=== PATIENT | female | born 1975 | race Caucasian/White ===

== ENCOUNTER 2021-04-09 12:56 | Outpatient (CLI) | payer BC, SELFPAY ==
--- NOTE | ~2021-04-09 | XR_ITS ---
EXAMINATION: XR chest 2V 04/09/2021 13:38 INDICATION: Nicotine dependence PROCEDURE: 2 view chest COMPARISON: 08/28/2018 FINDINGS: The lungs are clear. The cardiomediastinal silhouette is within normal limits. There are no pleural effusions. There is no pneumothorax suspected. There is scoliosis. IMPRESSION: 1: NO ACUTE CARDIOPULMONARY DISEASE. Reviewed, dictated and finalized at location A.
--- NOTE | ~2021-04-09 | MM_ITS ---
EXAMINATION: MM scrn thao implant BI w honorio HISTORY: Screening mammogram TECHNIQUE: Craniocaudal and mediolateral oblique 3-D tomosynthesis images with implant displacement a nd synthetic 2-D images were generated. Craniocaudal and mediolateral oblique views of the breasts wi thout implant displacement were obtained using full field digital mammography. CAD analysis was submi tted and interpreted. COMPARISON: 08/28/2018 bilateral implant digital screening mammogram BREAST PARENCHYMAL COMPOSITION: There are scattered areas of fibroglandular density. FINDINGS: Status post bilateral augmentation mammoplasty There is no evidence of suspicious mass, charlene cification, or architectural distortion to suggest malignancy in either breast. There has been no ada picious interval change. IMPRESSION: 1. No mammographic evidence of malignancy. 2. Recommend routine screening mammography in one year. BI-RADS Category 1: Negative Reviewed, dictated and finalized at location A.
== END 2021-04-09 12:57 ==
PROVIDERS: Visit Provider Family Medicine
DX: Z12.31 Encounter for screening mammogram for malignant neoplasm of breast (principal); F17.200 Nicotine dependence, unspecified, uncomplicated
CPT/HCPCS: 71046; 77063; 77067

== ENCOUNTER 2021-10-30 09:31 | Emergency (ER) | payer BC, SELFPAY ==
[2021-10-30] VITALS (23 sets, daily range): BP systolic 86–124; BP diastolic 66–88; PULSE 70–100; RESP 12–22; TEMP 35.6–36.6; O2SAT 97–100
--- NOTE | ~2021-10-30 | XR_ITS ---
EXAMINATION: XR chest 1V portable DATE: 10/30/2021 10:25 INDICATION: Unresponsive. Overdose. TECHNIQUE: A single frontal view of the chest was obtained. COMPARISON: Chest 2 views 04/09/2021 FINDINGS: There is mild atelectasis in the lower lung zones. No pleural effusion or pneumothorax. The heart size is normal. Breast implants are noted. IMPRESSION: 1. Mild atelectasis in the lower lung zones. Reviewed, dictated and finalized at location A. TUBE ASSEMBLER MACHINE
--- NOTE | ~2021-10-30 | XR_ITS ---
EXAMINATION: XR chest 1V portable DATE: 10/30/2021 11:28 INDICATION: Intubation. TECHNIQUE: A single frontal view of the chest was obtained. COMPARISON: Chest single view at 10:15 AM FINDINGS: There is mild atelectasis in the lower lung zones. No pleural effusion or pneumothorax. The heart size is normal. The endotracheal tube tip is 3 mm above the natacha. IMPRESSION: 1. Endotracheal tube tip 3 mm above the natacha. Retraction 2 cm is recommended. 2. Mild atelectasis in the lower lung zones. Reviewed, dictated and finalized at location A. INTERMEDIATE
--- NOTE | ~2021-10-30 | CT_ITS ---
EXAMINATION: CT brain wo con EXAM DATE: 10/30/2021 10:24 INDICATION: Unresponsive, temporary change in awareness. TECHNIQUE: Spiral CT of the head was performed without contrast. Axial, coronal and sagittal images were reviewed. The dose-length product (DLP) for this examination was 605.33 mGy-cm. The exposure w as tailored according to patient size, and iterative reconstruction (ASIR) was used as additional dos e reduction technique. There is no prior study for comparison. FINDINGS: There is no acute intraparenchymal hemorrhage. No evidence of intraparenchymal brain mass lesion. No evidence of acute infarction. There is no mass effect or midline shift. The ventricles are normal in size. There are no extra-axial collections. There are no acute calvarial fractures. T he orbits are unremarkable. Soft tissue is unremarkable. The visualized sinuses and mastoid air cj ls are well aerated. IMPRESSION: 1. No acute intracranial findings. Reviewed, dictated and finalized at location B. N OUT DRILLER
--- NOTE | ~2021-10-30 | XR_ITS ---
EXAMINATION: XR chest 1V portable DATE: 10/30/2021 12:08 INDICATION: Intubation. TECHNIQUE: A single frontal view of the chest was obtained. COMPARISON: Chest single view at 11:27 AM FINDINGS: There are mild airspace opacities in left lower lung zone. No pleural effusion or pneumotho rax. The heart size is normal. The endotracheal tube tip is 13 mm above the natacha. IMPRESSION: 1. Unchanged mild airspace opacities in left lower lung zone, likely atelectasis. Pneumonia is less l ikely. Reviewed, dictated and finalized at location A. E GENERAL DUTY IMPRESSION: 1. Unchanged mild airspace opacities in left lower lung zone, likely atelectasi s. Pneumonia is less likely.
--- NOTE | 2021-10-30 09:32 | ECG_ITS ---
Measurements Intervals [place] Rate: 103 P: 68 NH: 163 QRS: 90 QRSD: 97 T: 55 QT: 364 QTc: 477 Interpretive Statements SINUS TACHYCARDIA MINIMAL Q WAVES- INFERIOR LEADS BORDERLINE ECG Electronically Signed On 10-30-2021 10:03:00 NEUROPHYSIOLOGICAL TECHNICIAN by Bj Bragg D.O.
[2021-10-30 09:48] LABS: Add Urine Microscopic? NO; Appearance Urine Clear (Clear); Bilirubin Urine Negative (Negative); Blood Urine Negative (Negative); Color Urine Light Yellow (Yellow); Glucose Urine UA Negative (Negative); Ketones Urine Negative (Negative); Leukocyte Esterase Ur Negative LEU/UL (Negative); Nitrate Urine Negative (Negative); Protein Urine Negative (Negative); Specific Grav Ur 1.015 (1.010-1.020); Urobilinogen Urine 0.2 mg/dL (0.2-1.0); pH Urine 5.5 (5.0-8.0)
[2021-10-30 09:49] LABS: Basophils Absolute Auto 0.03 K/mm3 (0.00-0.10); Basophils Percent Auto 0.3 % (0.0-1.0); Eosinophils Absolute Auto 0.09 K/mm3 (0.02-0.50); Eosinophils Percent Auto 0.9 % (1.0-6.0); Hematocrit 38.5 % (35.0-49.0); Hemoglobin 13.4 g/dL (12.0-15.0); Immature Granulocyte Absolute 0.05 K/mm3 (0.00-0.00); Immature Granulocyte Percent A 0.5 % (0.0-0.0); Lymphocytes Absolute Auto 3.26 K/mm3 (1.10-4.50); Lymphocytes Percent Auto 34.1 % (18.0-42.0); Mean Corpuscular HGB Conc 34.8 g/dL (32.0-36.0); Mean Corpuscular Hemoglobin 34.4 pg (27.0-31.0); Mean Corpuscular Volume 98.7 fL (78.0-102.0); Mean Platelet Volume 10.4 fl (9.2-11.8); Monocytes Absolute Auto 0.46 K/mm3 (0.10-0.90); Monocytes Percent Auto 4.8 % (2.0-11.0); Neutrophils Absolute Auto 5.7 K/mm3 (1.7-7.2); Neutrophils Percent Auto 59.4 % (50.0-70.0); Platelet Count Result 311 K/mm3 (150-420); Red Cell Distribution Width 13.2 % (11.6-14.4); White Blood Count 9.6 K/mm3 (4.8-10.8)
[2021-10-30 09:58] LABS: Amphetamine Screen Urine Negative (Negative); Barbiturate Screen Urine Negative (Negative); Benzodiazepines Screen Urine Negative (Negative); Cannabinoid Screen Urine Negative (Negative); Cocaine Screen Urine Negative (Negative); Methadone Screen Urine Negative (Negative); Opiate Screen Urine Negative (Negative); Phencyclidine Screen Urine Negative (Negative)
[2021-10-30 10:17] LABS: Acetaminophen < 2 ug/mL (10-30); Alanine Aminotransferase 20 U/L (14-59); Albumin Level 3.5 g/dL (3.4-5.0); Alkaline Phosphatase 111 U/L (46-116); Anion Gap 13 mmol/L (8-16); Aspartate Amino Transferase 14 U/L (15-37); Bilirubin,Total 0.2 mg/dL (0.00-1.00); Blood Urea Nitrogen 12 mg/dL (7-18); Calcium 8.6 mg/dL (8.5-10.1); Carbon Dioxide 24 mmol/L (21-32); Chloride 105 mmol/L (98-108); Creatine Kinase 60 U/L (26-192); Estimated CRCL calculation 95 ml/min; Estimated Glomerular Filt Rate > 60; Ethanol 58 mg/dL (0-6); Glucose 86 mg/dL (70-99); Osmolality Calculated 292 mOsm/kg (285-295); Potassium 3.6 mmol/L (3.5-5.1); Salicylate 6.6 mg/dL (2.8-20.0); Sodium 142 mmol/L (136-145); Thyroid Stimulating Hormone 1.71 uIU/mL (0.36-3.74); Total Protein 7.3 g/dL (6.4-8.2); Troponin I 4.9 ng/L (0.00-60.4)
[2021-10-30 10:28] LABS: Lactic Acid Reflex 1.6 mmol/L (0.4-2.0)
[2021-10-30] MEDS: SODIUM CHLORIDE 0.9% IV 1,000 ML 999 ML IV CONT (10:30)
[2021-10-30 10:31] LABS: Base Excess ABG -5.8 mmol/L (0-2); HCO3 ABG 19.6 mmol/L (23-29); Oxygen Content ABG 14.8 %vol (16.0-22.0); Oxygen Saturation ABG 82.4 % (95-97); Oxyhemoglobin 79.9 % (94-100); PCO2 ABG 38.3 mmHg (35-45); PO2 ABG 50.2 mmHg (80-90); Total Hemoglobin 13.2 g/dL (12.0-18.0); pH ABG 7.33 (7.35-7.45)
[2021-10-30 10:34] LABS: Device ROOM AIR; Modified Allen's Test Pass; Site Drawn LEFT RADIAL
[2021-10-30] MEDS: NALOXONE HCL INJ 2 MG/2 ML AMP 1 MG IV PUSH ×2 (10:55→11:04)
--- NOTE | 2021-10-30 11:00 | PC.NURSE ---
Pt still only responding to painful stimuli. Pt having moments of moving feet or hands for a few seconds. Respiratory bagging pt and ERP assessing pt.
[2021-10-30] MEDS: SODIUM CHLORIDE 0.9% IV 1,000 ML 200 ML IV CONT (11:15)
--- NOTE | 2021-10-30 11:16 | PC.NURSE ---
ERP, Respiratory, Tech, and Pharmacist, and RN at bedside to intubate pt.[id number] 1117 24mg etomidate being prepped by pharmacist 1118 100mg Kemal 1120 Medications admi 1121 ERP intubating. 1122ERP listening for breath sounds. Respiratory bagging through tube placement. 1122 X ray called for placement
[2021-10-30] MEDS: ETOMIDATE 20 MG/10 ML AMPUL 40 MG (11:18)
[2021-10-30 11:28] LABS: SARS-CoV-2 Ag Negative (Negative)
--- NOTE | 2021-10-30 11:29 | PC.NURSE ---
Per ERP verbal order to RN and pharmacist. Pt to be started on 10mcg/kg/min. Propofol started at 1130
[2021-10-30] MEDS: PROPOFOL IV EMULSION 100 ML 5.1 MG (11:30)
[2021-10-30] MEDS: THIAMINE HCL 200 MG/2 ML VIAL 100 MG IV PUSH (11:32)
[2021-10-30 11:55] LABS: Glucose Point of Care 43 mg/dl (65-105)
[2021-10-30 11:55] LABS: Glucose Point of Care 62 mg/dl (65-105)
[2021-10-30] MEDS: DEXTROSE 5%/0.9% SOD CHL 1,000 ML 200 ML IV CONT ×2 (12:13→16:56)
--- NOTE | 2021-10-30 12:35 | PC.NURSE ---
1210 NS infusion stopped. per ERP switch to NS with 5% dextrose
[2021-10-30 13:16] LABS: Glucose Point of Care 105 mg/dl (65-105)
--- NOTE | 2021-10-30 13:34 | PC.NURSE ---
Hilary GAO called multiple facilities for a bed around 1130 [place], [place], [facility], [place], [place], [facility], [facility], [facility], [facility], [facility], [facility], [facility], [facility], [facility], [facility], [facility], [facility], [facility] and [facility]. All beds were full in the ICU with multiple places boarding ER patients.
[2021-10-30 13:39] LABS: Device VENTILATOR; Fractional Inspired Oxygen 100 %; HCO3 ABG 20.8 mmol/L (23-29); Modified Allen's Test Pass; Oxygen Content ABG 17.7 %vol (16.0-22.0); Oxygen Saturation ABG 99.1 % (95-97); Oxyhemoglobin 97.9 % (94-100); PCO2 ABG 51.5 mmHg (35-45); Site Drawn LEFT RADIAL; Total Hemoglobin 12.2 g/dL (12.0-18.0); pH ABG 7.22 (7.35-7.45)
[2021-10-30 13:44] LABS: Arterial Blood Gas Tidal Volume 400 ml
--- NOTE | 2021-10-30 13:45 | PC.NURSE ---
Pt turned to the left to prevent skin breakdown. Pt moved to a different room in eyesight of nurses station. Tech reviewed belongings list with boyfriend and belongings sent home. Hilary GAO spoke with pts son and daughter earlier who states boyfriend was allowed into room.
[2021-10-30 13:49] LABS: Arterial Blood Gas PEEP 10 cmH2O
[2021-10-30 13:50] LABS: Arterial Blood Gas Ventilator rate 12 /MIN
[2021-10-30 14:02] LABS: Troponin I 5.2 ng/L (0.00-60.4)
--- NOTE | 2021-10-30 14:29 | ED.AMS ---
HPI - Altered Mental Status General Chief Complaint: Overdose Stated Complaint: ambulance Time Seen by Provider: 10/30/21 09:32 Source: EMS Mode of arrival: EMS Limitations: no limitations History of Present Illness HPI narrative: 46-year-old woman brought to the emergency department by EMS after she was found by her significant other ( boyfriend) unconscious in her bed around 830. They had been an argument last night and and she was home alone. During their argument she expressed a desire to end her life. She did not mention any plan. She was found with an empty bottle of cyclobenzaprine and an empty bottle of duloxetine there her. Accu-Chek on scene was normal. MD complaint: altered mental status and decreased responsiveness Onset (ago): unknown Severity: severe Treatments prior to arrival: IV fluid and oxygen Related Data Home Medications Medication Instructions Recorded Confirmed methotrexate (PF) 7.5 mg/0.4 mL 7.5 mg SUBCUT WEEKLY 11/16/20 subcutaneous auto-injector cyclobenzaprine 10 mg PO PRN 10/30/21 10/30/21 duloxetine 30 mg PO DAILY 10/30/21 10/30/21 duloxetine mg PO 10/30/21 phentermine 37.5 mg PO DAILY 10/30/21 10/30/21 Allergies Allergy/AdvReac Type Severity Reaction Status Date / Time Penicillins Allergy Mild unknown Verified 10/30/21 09:42 clarithromycin Allergy Unknown RASH Verified 10/30/21 09:42 Sulfa (Sulfonamide Allergy Unknown Rash Verified 10/30/21 09:42 Antibiotics) Review of Systems Review of Systems: ROS unobtainable: Yes unobtainable due to mental status PMFSH Past Medical History Medical History (Updated 10/30/21 @ 19:18 by Jac Hennessy MD) Chronic otitis externa of both ears Depression Polychondritis Social History Social History (Updated 10/30/21 @ 14:34 by Jac Hennessy MD) Smoking status: Current every day smoker Alcohol intake: current Substance use: unknown Living arrangements: alone Exam Const: Other: Obtunded. Withdraws to pain, no eye opening to pain, incomprehensible vocalizations. HENMT: Head: normal to inspection Ears: EAC's normal Face and sinus: normal facial exam Mouth: Yes moist mucous membranes Throat: posterior oropharynx normal Other: Gags with tongue depressor on anterior tongue Eyes: Conjunctivae: conjunctivae normal EOM: EOMs intact bilaterally Other: pupils midposition, equal and sluggish. Neck: Neck: normal visual inspection Chest: Chest palpation & inspection: normal inspection of the chest Resp: Auscultation: clear to auscultation bilaterally, no rales, no rhonchi and no wheezes Other: Decreased respiratory effort with intermittent apneic episodes Cardio: Rate: regular rate Rhythm: regular rhythm Heart sounds: no murmurs GI: GI Palp: Yes Soft to palpation, No Tenderness to palpation present (GI) and No Palpable mass present Skin: General skin exam: normal color, no jaundice and no pallor Rashes: no rashes Wounds: no wounds Neuro: General: moves all extremities Extrem: General: normal to inspection and no clubbing, cyanosis or edema Other: Warm, dry and pink. Distal pulses full and symmetric. Psych: Appearance: grossly normal and well kempt Course Course Emergency Course: 1500: As per nurse's notes, multiple hospitals in the region have been contacted multiple times and have found no available ICU beds. [facility] was contacted for an ICU bed at 1115, approximately 1350, and 1450. They have no available beds per warehouse order selector. 2140: Discussed findings with hospitalist nurse-practitioner at [facility] in [place] who stated she could not accept the patient because they had neither EEG or nor Neurology for consultation. 0200: Overnight multiple hospitals were contacted again no beds were available. She is on several waiting lists. 0630: Patient discussed with Sirisha Pinon MD industrial plant custodian at [facility] who accepted for transfer to ICU. Vital
--- NOTE | 2021-10-30 15:57 | PC.NURSE ---
Pt turned to face the right direction. Oral care and ET suctioning performed by ERP
--- NOTE | 2021-10-30 16:14 | PC.NURSE ---
RN spoke with poison control notified. Case # [id number] They request a repeat salicylate and EKG. ERP made aware.
--- NOTE | 2021-10-30 16:16 | ECG_ITS ---
Measurements Intervals [place] Rate: 79 P: 72 RI: 178 QRS: 80 QRSD: 103 T: 74 QT: 418 QTc: 482 Interpretive Statements SINUS RHYTHM BORDERLINE R WAVE PROGRESSION, ANTERIOR LEADS MINIMAL Q WAVES- INFERIOR LEADS BORDERLINE ECG Electronically Signed On 10-30-2021 16:47:56 GLASSBLOWER by Bj Bragg D.O.
[2021-10-30 16:58] LABS: Base Excess ABG -7.1 mmol/L (0-2); HCO3 ABG 20.7 mmol/L (23-29); PCO2 ABG 50.5 mmHg (35-45); PO2 ABG 122.9 mmHg (80-90); pH ABG 7.23 (7.35-7.45)
[2021-10-30 16:59] LABS: Fractional Inspired Oxygen 50 %; Modified Allen's Test Pass; Site Drawn LEFT RADIAL
[2021-10-30 17:00] LABS: Device VENTILATOR
[2021-10-30 17:17] LABS: Arterial Blood Gas Ventilator rate 16 /MIN; Oxygen Saturation ABG 98.1 % (95-97)
[2021-10-30 17:18] LABS: Arterial Blood Gas PEEP 10 cmH2O; Arterial Blood Gas Tidal Volume 400 ml; Arterial Blood Gas Vent Mode ASSIST CONTROL
--- NOTE | 2021-10-30 17:20 | PC.NURSE ---
Pt moving feet at time intermittently. Boyfriend at bedside touching pts feet stating I am trying to waker her up Boyfriend informed that we are trying to keep her sedated until the medications wear off. Educated him that we want to make sure she is ready before we wake her up to soon and she tries to pull out the breathing tube. Boyfriend verbalized understandign but continues to mess with pts feet.
[2021-10-30 18:08] LABS: Salicylate 5.3 mg/dL (2.8-20.0)
--- NOTE | 2021-10-30 18:16 | PC.NURSE ---
Pt turned to the left. Mouth suctioned
--- NOTE | 2021-10-30 18:20 | PC.NURSE ---
RN spoke with poison control and updated on pts condition and repeat ekg. states she will call back in a few hours and update with any beds.
[2021-10-30 18:51] LABS: Base Excess ABG -4.9 mmol/L (0-2); HCO3 ABG 21.6 mmol/L (23-29); Oxygen Content ABG 16.9 %vol (16.0-22.0); Oxygen Saturation ABG 98.5 % (95-97); PCO2 ABG 45.6 mmHg (35-45); PO2 ABG 160.9 mmHg (80-90); pH ABG 7.29 (7.35-7.45)
[2021-10-30 18:53] LABS: Device VENTILATOR; Fractional Inspired Oxygen 50 %; Modified Allen's Test Pass; Site Drawn RIGHT RADIAL
[2021-10-30 18:54] LABS: Glucose Point of Care 169 mg/dl (65-105)
[2021-10-30 18:54] LABS: Arterial Blood Gas PEEP 8 cmH2O; Arterial Blood Gas Tidal Volume 400 ml; Arterial Blood Gas Vent Mode ASSIST CONTROL; Arterial Blood Gas Ventilator rate 20 /MIN
--- NOTE | 2021-10-30 18:57 | PC.NURSE ---
1210 RN and Tech placed pastor catheter per ERP verbal order to monitor urine output. Inserted without difficuly. Will monitor output.
--- NOTE | 2021-10-30 18:58 | PC.NURSE ---
Addendum entered by Citlaly Church RN 10/30/21 19:03: [facility] for [facility] due to critical patients in house. Original Note: At 1453 RN attempted to find bed for pt. RN called [facility] access line, [facility] access line, [facility] acces line, [facility], and [facility] access line with no success.
--- NOTE | 2021-10-30 19:00 | PC.NURSE ---
RN spoke with Animal Sitter at [facility] who states they are in the middle of shift report, but will call back if they are able to accomadate the bed.
--- NOTE | 2021-10-30 19:57 | PC.NURSE ---
RN spoke with supervisor mechanic boilermaking from [facility] in regards to transfer to their facility. Wildlife Biology Technician gave fax number for records requested by Hospitalist for review at this time.
--- NOTE | 2021-10-30 20:46 | PC.NURSE ---
RN has made the calls to the following facilities for possible transfer to higher level of care: [facility] at [facility]: referral taken and chart faxed to Hospitalist for review. [facility]: still on waitlist from day shift and access line said unknown time for bed. [facility]: no beds available and is at capacity to place anyone else on waitlist at this time. [facility]: no beds available throughout system and no waitlist at this time. [facility]: no beds available throughout system and no waitlist at this time. [facility]: spoke with transfer center and placed patient on waitlist at this time. [facility]/ [facility]: spoke with transfer center and placed patient on waitlist at this time.
[2021-10-30] MEDS: PROPOFOL IV EMULSION 100 ML 10.2 MG IV CONT (20:52)
--- NOTE | 2021-10-30 20:56 | PC.NURSE ---
[facility] full until 9613 tomorrow when they will discuss bed status
--- NOTE | 2021-10-30 20:59 | PC.NURSE ---
[facility] declined due to being at capacity and no psychiatry available to consult
--- NOTE | 2021-10-30 21:38 | PC.NURSE ---
[facility] declined patient due to lack of neurology
--- NOTE | 2021-10-30 21:50 | PC.NURSE ---
After attempting to contact the housekeeping aide by [phone] without being able to connect to anyone, RN contacted main line and was redirected to [facility] housekeeping aide who states that she did not have any beds available at this time and would not be able to accommodate this patient.
--- NOTE | 2021-10-30 22:03 | PC.NURSE ---
poison control called and spoke with [facility] who states that they will call back with update.
[2021-10-30] MEDS: DEXTROSE 5%/0.9% SOD CHL 1,000 ML 150 ML IV CONT (22:04)
--- NOTE | 2021-10-30 22:11 | PC.NURSE ---
0: patient turned to right side.
[2021-10-30 23:29] LABS: Base Excess ABG -5.7 mmol/L (0-2); Device VENTILATOR; HCO3 ABG 18.8 mmol/L (23-29); Modified Allen's Test Pass; Oxygen Content ABG 17.1 %vol (16.0-22.0); Oxygen Saturation ABG 98.6 % (95-97); Oxyhemoglobin 97.9 % (94-100); PCO2 ABG 33.6 mmHg (35-45); PO2 ABG 173.2 mmHg (80-90); Site Drawn LEFT RADIAL; Total Hemoglobin 12.2 g/dL (12.0-18.0); pH ABG 7.37 (7.35-7.45)
--- NOTE | 2021-10-30 23:41 | PC.NURSE ---
Patient turned with help of RN to the left side
--- NOTE | 2021-10-30 23:42 | PC.NURSE ---
RN provided oral care for patient at this time
[2021-10-30 23:48] LABS: Arterial Blood Gas PEEP 8 cmH2O; Arterial Blood Gas Tidal Volume 400 ml; Arterial Blood Gas Vent Mode ASSIST CONTROL; Arterial Blood Gas Ventilator rate 20 /MIN; Fractional Inspired Oxygen 50 %
[2021-10-30 23:51] LABS: Anion Gap 10 mmol/L (8-16); Blood Urea Nitrogen 9 mg/dL (7-18); Calcium 7.5 mg/dL (8.5-10.1); Carbon Dioxide 22 mmol/L (21-32); Chloride 114 mmol/L (98-108); Estimated CRCL calculation 153 ml/min; Estimated Glomerular Filt Rate > 60; Glucose 112 mg/dL (70-99); NT Pro B Type Natriuretic Pept 34 pg/mL (0-125); Osmolality Calculated 301 mOsm/kg (285-295); Potassium 3.5 mmol/L (3.5-5.1); Sodium 146 mmol/L (136-145); Troponin I 7.5 ng/L (0.00-60.4)
[2021-10-31] VITALS (22 sets, daily range): BP systolic 104–126; BP diastolic 79–90; PULSE 79–130; RESP 16–20; TEMP 36.4–36.6; O2SAT 100
[2021-10-31] MEDS: DEXTROSE 5%/0.45% SOD CHL 1,000 ML 100 ML IV CONT (00:12)
--- NOTE | 2021-10-31 00:55 | PC.NURSE ---
Dr. Hennessy requested RN and Cardiopulmonary to attempt to ween patient off of ventilator. Began at 0027 and discontinued propofol drip. After 10 minutes RT changed vent settings to assist control to assess patient at this time. After 15 minutes of monitoring patient, no response to verbal stimuli. Patient will react to deep painful stimuli on occasion. vitals stable at this time. Patient is not seen to bite at tube or open eye. eyes PERRLA when assessing.
--- NOTE | 2021-10-31 00:59 | PC.NURSE ---
After unsuccessfully weening patient off of ventilator. ERP ordered patient back on same vent and sedation settings. ERP walked out of room. While RN and RT was in room repositioning patient and adjusting setting on ventilator, patient began thrashing in room and attempting to rip out ET tube. Sedation increased and patient became sedated again at this time per Dr. Hennessy's orders.
--- NOTE | 2021-10-31 01:54 | PC.NURSE ---
Patient turned to the right side and oral care provided at this time.
[2021-10-31] MEDS: LORazepam INJ (*CRX) 2 MG/ML VIAL 1 MG IV PUSH (02:02)
[2021-10-31] MEDS: PROPOFOL IV EMULSION 100 ML 11.22 MG IV CONT (05:33)
[2021-10-31 05:37] LABS: Base Excess ABG -3.2 mmol/L (0-2); HCO3 ABG 18.8 mmol/L (23-29); Oxygen Content ABG 16.6 %vol (16.0-22.0); Oxygen Saturation ABG 98.3 % (95-97); Oxyhemoglobin 95.2 % (94-100); PCO2 ABG 25.5 mmHg (35-45); PO2 ABG 144.1 mmHg (80-90); Total Hemoglobin 12.2 g/dL (12.0-18.0); pH ABG 7.49 (7.35-7.45)
[2021-10-31 05:38] LABS: Basophils Absolute Auto 0.05 K/mm3 (0.00-0.10); Basophils Percent Auto 0.3 % (0.0-1.0); Device VENTILATOR; Eosinophils Absolute Auto 0.36 K/mm3 (0.02-0.50); Eosinophils Percent Auto 2.5 % (1.0-6.0); Fractional Inspired Oxygen 50 %; Hematocrit 35.6 % (35.0-49.0); Hemoglobin 11.4 g/dL (12.0-15.0); Immature Granulocyte Absolute 0.06 K/mm3 (0.00-0.00); Immature Granulocyte Percent A 0.4 % (0.0-0.0); Lymphocytes Absolute Auto 2.28 K/mm3 (1.10-4.50); Lymphocytes Percent Auto 15.6 % (18.0-42.0); Mean Corpuscular Volume 106.3 fL (78.0-102.0); Mean Platelet Volume 10.5 fl (9.2-11.8); Modified Allen's Test Pass; Monocytes Absolute Auto 0.83 K/mm3 (0.10-0.90); Monocytes Percent Auto 5.7 % (2.0-11.0); Neutrophils Percent Auto 75.5 % (50.0-70.0); Platelet Count Result 255 K/mm3 (150-420); Red Blood Count 3.35 M/mm3 (4.20-5.40); Red Cell Distribution Width 13.9 % (11.6-14.4); Site Drawn RIGHT RADIAL; White Blood Count 14.6 K/mm3 (4.8-10.8)
[2021-10-31 05:39] LABS: Arterial Blood Gas Tidal Volume 400 ml; Arterial Blood Gas Vent Mode ASSIST CONTROL
[2021-10-31 05:53] LABS: Arterial Blood Gas PEEP 8 cmH2O; Arterial Blood Gas Ventilator rate 20 /MIN
[2021-10-31 06:03] LABS: Alanine Aminotransferase 15 U/L (14-59); Albumin Level 2.5 g/dL (3.4-5.0); Alkaline Phosphatase 90 U/L (46-116); Anion Gap 9 mmol/L (8-16); Aspartate Amino Transferase 24 U/L (15-37); Bilirubin,Total 0.2 mg/dL (0.00-1.00); Blood Urea Nitrogen 7 mg/dL (7-18); Calcium 7.9 mg/dL (8.5-10.1); Carbon Dioxide 21 mmol/L (21-32); Chloride 114 mmol/L (98-108); Creatine Kinase 43 U/L (26-192); Estimated CRCL calculation 134 ml/min; Estimated Glomerular Filt Rate > 60; Glucose 96 mg/dL (70-99); Osmolality Calculated 296 mOsm/kg (285-295); Potassium 3.4 mmol/L (3.5-5.1); Sodium 144 mmol/L (136-145); Total Protein 5.4 g/dL (6.4-8.2)
[2021-10-31 06:04] LABS: Magnesium 1.9 mg/dL (1.8-2.4); NT Pro B Type Natriuretic Pept 75 pg/mL (0-125); Troponin I 6.2 ng/L (0.00-60.4)
--- NOTE | 2021-10-31 06:28 | PC.NURSE ---
RN reached out to [facility] in [place], [place] for possible transfer to hospital for ICU care. Dr. Hennessy speaking with Dr. Pinon ICU commercial development manager in regards to transfer at this time.
[2021-10-31] MEDS: LORazepam INJ (*CRX) 2 MG/ML VIAL (11:03)
== END 2021-10-31 08:00 | disposition short-term general hospital (02) ==
PROVIDERS: Emergency Provider Emergency Medicine
DX: R41.82 Altered mental status, unspecified (principal); J96.00 Acute respiratory failure, unspecified whether with hypoxia or hypercapnia; I95.9 Hypotension, unspecified; Z79.899 Other long term (current) drug therapy; Z20.822 Contact with and (suspected) exposure to COVID-19; F17.200 Nicotine dependence, unspecified, uncomplicated
CPT/HCPCS: 31500; 36415; 36600; 70450; 71045; 80048; 80053; 80307; 81003; 82550; 82805; 82948; 83605; 83735; 83880; 84443; 84484; 85025; 87040; 87086; 87426; 93005; 96361; 96365; 96366; 96367; 96368; 96375; 99285; C9803; J0743; J2060; J2310; J2704; J3411; J7030; J7042

== ENCOUNTER → 2022-09-25 10:16 | Outpatient (CLI) | payer BC, SELFPAY ==
--- NOTE | ~2022-09-25 | MM_ITS ---
EXAMINATION: MM scrn thao implant BI w honorio HISTORY: Screening mammogram TECHNIQUE: Craniocaudal and mediolateral oblique 3-D tomosynthesis images with implant displacement a nd synthetic 2-D images were generated. Craniocaudal and mediolateral oblique views of the breasts wi thout implant displacement were obtained using full field digital mammography. CAD analysis was submi tted and interpreted. COMPARISON: 04/05/2021, 08/28/2018 bilateral implant screening mammogram examinations BREAST PARENCHYMAL COMPOSITION: There are scattered areas of fibroglandular density. FINDINGS: Status post bilateral augmentation mammoplasty. There is no evidence of suspicious mass, ca lcification, or architectural distortion to suggest malignancy in either breast. There has been no willis spicious interval change. IMPRESSION: 1. No mammographic evidence of malignancy. 2. Recommend routine screening mammography in one year. BI-RADS Category 1: Negative Reviewed, dictated and finalized at location A. MP TRAWLER CAPTAIN
== END ==
PROVIDERS: PCP Family Medicine; Visit Provider Family Medicine
DX: Z12.31 Encounter for screening mammogram for malignant neoplasm of breast (principal)
CPT/HCPCS: 77063; 77067